=== PATIENT | male | born 2000 | race Caucasian/White ===

== ENCOUNTER 2024-12-07 16:41 | Emergency (ER) | payer OTHER, SELFPAY ==
[2024-12-07 16:46] VITALS: BP 171/84
[2024-12-07 17:30] VITALS: BMI 24.8
[2024-12-07 17:32] VITALS: BP 137/98
[2024-12-07 17:57] LABS: Hematocrit 42.5 % (39.0-52.0); Hemoglobin 14.2 g/dL (13.0-18.0); Mean Corp Hgb Conc. 33.4 g/dL (33.0-37.0); Mean Corpuscular Volume 86.2 fL (80.0-94.0); Nucleated Red Blood Cells % 0 % (-); Platelet Count 243 10^3/uL (130-400); Red Cell Dist. Width 11.9 % (11.5-14.5)
--- NOTE | 2024-12-07 17:58 | ED.GENMED ---
History of Present Illness
General
Chief Complaint: Abdominal Pain
Source: patient
Exam Limitations: none
Time Seen by Provider: 12/07/24 17:18
History of Present Illness
History of Present Illness:
24yoM with no significant past medical history presenting for evaluation of groin pain. Patient has been experiencing pain in his right groin/right lower quadrant for the past month. Pain radiates to the right thigh and right testicle and is worse
with movement of his right hip. He was seen at [facility] last week for the symptoms and had a CT scan performed. CT showed questionable slight wall thickening of the proximal small bowel possibly representing underdistention versus mild
enteritis. Imaging also showed nonobstructing renal stones. Appendix was normal. He has seen his PCP twice this week regarding his symptoms. His PCP thought he may have felt a hernia on exam today and he was told to go to the ED for evaluation.
Patient reports that it is harder to initiate his urine stream but denies any dysuria or penile discharge. Bowel movements are loose and he is having intermittent bright red blood per rectum. Patient also underwent an MRI of his lumbar spine
earlier this week which was unremarkable. No prior abdominal surgeries.
Phy Exam
General Physical Exam
General Presentation: well appearing and no apparent distress
General Skin: warm and dry
General Habitus: normal
General Mental: alert
ENT Exam
ENT Exam: normocephalic
Pulmonary Exam
Pulmonary Exam: no respiratory distress
Gastrointestinal Exam
Gastrointestinal Exam: soft, non distended and other (+Tenderness in R inguinal region. No palpable hernia. Abdomen soft, non-distended. No rebound or guarding. )
Stool: other (No external hemorrhoid noted. Small amount of yellow mucous obtained on digital rectal exam, hemoccult negative.)
Genitourinary Exam Male
Exam Male: other (+Tenderness to R hemiscrotum. No testicular swelling or skin changes noted.)
Neurological Exam
Neurological Exam: alert
Maliha Coma Scale
Eye Opening: Spontaneous
Verbal Response: Oriented
Motor Response: Obeys Commands
GCS Total Score: 15
Skin Exam
Skin Exam: normal color and warm/dry
Psychiatric Exam
Psychiatric Exam: normal mood/affect
Course
Orders/Labs/Results
Orders:
Orders
12/07/24 17:37
Renal & Bladder US [US Renal With Bladder] Urgent
Comment:
Reason For Exam: RLQ pain, recent diagnosis of renal stone
Scrotum US [US Scrotum] Urgent
Comment:
Reason For Exam: R testicular pain
US Groin (Imaging Only) RT Urgent
Comment:
Reason For Exam: R groin pain
12/07/24 17:47
Complete Blood Count/With Diff Urgent
Comprehensive Metabolic Panel Urgent
Urinalysis Reflex To Culture Urgent
Date Specimen was Collected: 12/07/24
Time Specimen was Collected: 17:40
Abnormal Lab Results
12/07/24
17:47
MPV 10.5 H fL
(7.4-10.4)
12/07/24 17:47
12/07/24 17:47
Vital Signs
Initial and Last Documented VS:
Initial Vital Signs
Temp Pulse Resp BP Pulse Ox
98.1 F 89 20 171/84 99
12/07/24 16:46 12/07/24 16:46 12/07/24 16:46 12/07/24 16:46 12/07/24 16:46
Last Documented Vital Signs
Temp Pulse Resp BP Pulse Ox
98.1 F 89 20 137/98 100
12/07/24 16:46 12/07/24 16:46 12/07/24 16:46 12/07/24 17:32 12/07/24 18:18
MDM/Problems Addressed
Differential Diagnosis Includes:
24yoM here with R groin pain x 1 month that radiates to the R thigh and RLQ. Has been seen several times for these symptoms. Has underwent CT abdomen last week as well as MRI lumbar spine without any obvious cause of his symptoms. Denies any new or
worsening symptoms today. He is hypertensive with otherwise stable vitals. There is inguinal tenderness on exam without any palpable hernia. Differential diagnosis includes but is not limited to: muscular strain, hernia, lymphadenopathy, orchitis,
epididymitis, kidney stone, doubt appendicitis
Initial ED plan: Check CBC, CMP, UA, and scrotal/inguinal/renal ultrasound.
*Pulse Oximetry
SaO2: 100
Oxygen Mode of Delivery: Room air
Patient hypoxic: no
*Critical Care Note
Total Time (30-74mins, 75-104mins- exclusive of procedures): Not Applicable
Update Note
Update Note:
Labs unremarkable including normal white count. UA bland without infection or hematuria. Imaging is reassuring. There is a small right-sided hydrocele without evidence of orchitis or epididymitis. Bilateral blood flow confirmed. No inguinal
hernia visualized and no hydronephrosis on ultrasound. Very low clinical suspicion for appendicitis given lack of fever and leukocytosis. Patient also had a CT scan 1 week ago which showed a normal appendix and states his symptoms are no worse
today. Unclear etiology of symptoms, consider musculoskeletal. Supportive care discussed including ice and NSAIDs. He was advised to follow-up with his PCP. He also has appointment with orthopedics scheduled for next week. ED return precautions
reviewed and patient discharged in stable condition.
ED Attending Note
-
Portions of this chart may have been created with voice recognition software.� Occasional wrong word or��sound alike� substitutions may have occurred due to the inherent limitations of voice recognition software.
Discharge Plan
Departure
Patient Disposition: Home (Routine Discharge)
Date of Disposition: 12/07/24
Time of Disposition: 20:12
Patient with high blood pressure during this ER visit?: Yes
Discharge Problem:
Right inguinal pain
Instructions: Groin Strain ED
Referrals:
Fredis Cordero MD [Family Provider, Internal Medicine]
Activity Restrictions/Additional Instructions:
Take ibuprofen as needed for pain. Apply ice to affected area.
Please follow-up with your family doctor and orthopedics. Return to the ER with any new or worsening symptoms.
Interventions
Interventions:
*Risk Screen - Suicide Last Done: 12/07/24 17:33
*General Assessment Last Done: 12/07/24 16:46
*Neglect/Abuse Screening Last Done: 12/07/24 17:33
*ED- Fall Risk Assessment Last Done: 12/07/24 17:33
*ED COVID-19 Vaccine History Last Done: 12/07/24 17:33
*ED Influenza Vaccine History Last Done: 12/07/24 17:33
AE-Dahchm-Zwkbnewtjd Assessment Last Done: 12/07/24 17:33
Discharge Date and Time
Print Language: ROMANIAN
[2024-12-07 18:18] LABS: Urine Character Clear (Clear)
[2024-12-07 18:28] LABS: ALT (SGPT) 17 U/L (0-50); AST (SGOT) 18 U/L (17-59); Albumin 4.7 g/dl (3.5-5.0); Alkaline Phosphatase 45 U/L (38-126); Blood Urea Nitrogen 15 mg/dl (9-20); Calcium 9.6 mg/dl (8.4-10.2); Carbon Dioxide 29 mmol/L (22-30); Chloride 103 mmol/L (98-107); Estimated Creatinine Clearance > 125 ml/min; Glucose 83 mg/dl (70-99); Potassium 4.6 mmol/L (3.5-5.1); Sodium 139 mmol/L (135-145); Total Protein 7.4 g/dl (6.3-8.2); eGFR > 60.00
== END 2024-12-07 20:22 | disposition home or self-care (01) ==
LOC: EMR 16:41
PROVIDERS: Physician Assistant; EMERGENCY PHYSICIAN Emergency Medicine; FAMILY PHYSICIAN Internal Medicine
DX: R10.31 Right lower quadrant pain (principal)
CPT/HCPCS: 99284; 76770; 76870; 76882; 80053; 81003; 85025; 93976